=== PATIENT | female | born 1945 | race Caucasian/White ===

== ENCOUNTER 2024-06-06 18:46 | Emergency (ER) | payer MEDICARE ==
[~2024-06-06] VITALS: Ht 167.6 cm; Wt 72.6 kg
[2024-06-06] MEDS: Morphine 4mg INJECTION 4 MG/ML INJ IM ONE (19:48)
[2024-06-06] MEDS ORDERED: DIPHENHYDRAMINE HCL INJ 50 MG/ML VIAL IM ONE (20:45)
[2024-06-06] MEDS: DIPHENHYDRAMINE HCL INJ 50 MG/ML VIAL IV ONE (20:56)
[2024-06-06] MEDS: METHYLPREDNISOLONE SOD SUCC 125 MG/2ML VIAL IV ONE (20:56)
[2024-06-06 22:35] VITALS: PULSE 62; RESP 16; TEMP 98
[2024-06-06 22:56] VITALS: BP 141/87; PULSE 71; RESP 16; TEMP 98; O2SAT 97
== END 2024-06-06 22:30 | disposition home or self-care (01) ==
LOC: FSED 19:05
DX: S63.254A Unspecified dislocation of right ring finger, initial encounter (principal); X58.XXXA Exposure to other specified factors, initial encounter; Y93.84 Activity, sleeping; Y92.89 Other specified places as the place of occurrence of the external cause; Z85.3 Personal history of malignant neoplasm of breast
CPT/HCPCS: 26775; 73140; 99284; J1200; J2270; J2919